=== PATIENT | female | born 1940 | race Caucasian/White ===

== ENCOUNTER 2018-04-16 09:00 | Emergency (ER) | payer OTHER, BC ==
--- NOTE | 2018-04-16 10:48 | EDPHY ---
HPI/HX/ROS/PE/MDM Narrative: CHIEF COMPLAINT: Neck pain HISTORY OF PRESENT ILLNESS: The patient is a 78 y/o female complaining of neck pain worsening over the last 24 hours. She noticed mild soreness along the right lateral and posterior side of her neck yesterday. Shortly after falling asleep she woke up after midnight with significantly worse right neck pain. Sitting up helped and she propped up some pillows around her right arm and back to help her briefly get back to sleep. Lifting her right arm aggravates her pain as dose turning her head laterally. Sometimes the neck pain radiates into her right upper arm. She hasn't taken anything for pain yet. She denies weakness or paresthesias. She also mentions intermittent thyroid soreness followed by her doctor and she currently does have some mild right anterior soreness over her thyroid. She otherwise denies prior history of neck issues or pain. No recent trauma. She went to her doctor's office this morning and was referred to the ED. No fever, chills, chest pain, shortness of breath, palpitations, vomiting, diarrhea, urinary complaints, headache, lightheadedness. REVIEW OF SYSTEMS: Aside from elements discussed in the HPI, a comprehensive 10-point review of systems was reviewed and is negative. PAST MEDICAL HISTORY: Tubal ligation, thyroid issue, tonsillectomy, endometriosis Prior medical records reviewed including ED visit 09/11/13 for abdominal pain. SOCIAL HISTORY: Lives in [place]. . Retired. PCP: Dr. Durbin. VITAL SIGNS: Reviewed by me GENERAL: Well-developed, well-nourished, sitting upright. Holding her neck quite still. Unable to turn her head to the right side secondary to pain. HEENT: Atraumatic. Eyes: No icterus, no injection. Mouth: moist mucous membranes. No erythema or lesions. Neck: No midline tenderness to palpation. Spasm and tenderness along the right paraspinous muscles. LUNGS: Clear to auscultation bilaterally, no wheezes, rhonchi or rales. CARDIAC: Regular rate and rhythm, no rubs, murmurs or gallops. ABDOMEN: Soft, nontender, nondistended, bowel sounds normal. BACK: No cervical tenderness in the midline. No thoracic tenderness. No lumbar tenderness. Spasm is palpable in the right cervical paraspinous muscles. EXTREMITIES: No trauma. No edema. Range of motion is normal throughout. NEURO: Alert and oriented, grossly nonfocal. Normal or manager strength bilaterally. Normal sensation in the upper extremities. SKIN: Warm and dry, no rash. PSYCHIATRIC: Normal mentation, no agitation. Portions of this note were transcribed by a vice president medical affairs. I personally performed a history, physical exam, medical decision making, and confirmed accuracy of information the transcribed note. ED Course: This is a 78 y/o female who presents with right-sided neck pain with occasional radiation into her right upper arm worsening over the last 24 hours. She has right paraspinous and trapezius tenderness on exam. Nonfocal neuro exam. Plan for IV, labs including TSH, symptom management, and cervical spine CT as well as neck CT with IV contrast. 10mg PO Flexeril, 600mg PO ibuprofen ordered. Advised by Radiology that a soft tissue neck with IV contrast will be able to evaluate the cervical spine and a single order was all that was needed. 1324: Reassessed patient. She is feeling slightly better. CT results pending. 50mg PO Tramadol ordered. Cervical spine CT demonstrates significant amount of degenerative joint disease , no fractures. Patient does have evidence of a multi nodular thyroid and may benefit from a fine-needle aspiration. Of laboratory evaluation is normal. She has no signs or symptoms which are concerning for a stroke. No headache. Plan was to discharge the patient home with treatment for cervical neck pain of musculoskeletal etiology and follow up with her primary care physician concerning her thyroid. MDM: Differential diagnoses for the patient's symptom complex was considered including but not limited to cervical strain, occult fracture, cervical radicular symptoms, muscle spasm, anterior neck mass. - Data Points Imaging Results: CT Neck Impression: 1. Dominant heterogeneous enhancing nodule right lobe of the thyroid. Sono- guided fine-needle aspiration can be performed at some point as clinically directed. 2. Additional benign-appearing nodules associated with the left lobe of the thyroid. Consider multinodular goiter. 3. Degenerative disk disease mid cervical spine with facet hypertrophy mid to lower cervical and upper thoracic spine as detailed above. Findings discussed with Kavita Sales MD at 14:00 hour, 04/16/2018. Imaging: Discussed imaging studies w/ orthopedically impaired teacher Radiologist, I viewed and interpreted images myself Laboratory Results: Laboratory Results 04/16/18 11:20 04/16/18 11:20 Medications Given: Discontinued Medications Cyclobenzaprine HCl (Flexeril) 10 mg PO EDNOW ONE Stop: 04/16/18 11:08 Last Admin: 04/16/18 11:19 Dose: 10 mg Ibuprofen (Motrin) 600 mg PO EDNOW ONE Stop: 04/16/18 11:08 Last Admin: 04/16/18 11:23 Dose: Not Given Tramadol HCl (Ultram) 50 mg PO EDNOW ONE Stop: 04/16/18 13:37 Last Admin: 04/16/18 13:59 Dose: 50 mg General Time Seen by Provider: 04/16/18 10:35 Initial Vital Signs: Initial Vital Signs Temperature (C) 36.9 C 04/16/18 09:03 Heart Rate 93 04/16/18 09:03 Respiratory Rate 18 04/16/18 09:03 Blood Pressure 137/79 H 04/16/18 09:03 O2 Sat (%) 92 04/16/18 09:03 O2 Delivery Mode Room Air Allergies/Adverse Reactions: propoxyphene HCl [From Darvon] Allergy (Verified 04/16/18 09:07) SNYCOPE Home Medications: Medication Instructions Recorded Cyclobenzaprine [Flexeril 10 MG 10 mg PO TID PRN #15 tab 04/16/18 (*)] traMADol [Ultram 50 mg (*)] 25 - 50 mg PO Q4 PRN #15 tab 04/16/18 Departure - Departure Disposition: Home, Routine, Self-Care Clinical Impression: Multinodular goiter Degenerative joint disease of cervical spine Qualifiers: Spinal osteoarthritis complication: unspecified spinal osteoarthritis Qualified Code(s): M47.812 - Spondylosis without myelopathy or radiculopathy, cervical region Acute cervical sprain Qualifiers: Encounter type: initial encounter Qualified Code(s): S13.9XXA - Sprain of joints and ligaments of unspecified parts of neck, initial encounter Condition: Good Instructions: Cervical Strain (ED), Thyroid Nodules (ED), Acute Neck Pain (ED) Additional Instructions: Please follow up with your primary care physician if you're not improving as expected in the next 3-4 days. Main therapy will be to ice the neck, take ibuprofen for pain and anti inflammation, take Tylenol for additional pain relief, and use Flexeril if needed for muscle spasm. Apply ice for 20-30 minutes every 2-3 hours for the next 48 hours. I recommend Ibuprofen (Motrin, Advil) for pain and anti-inflammatory effects. Your dose is: Ibuprofen 400 mg every 6-8 hours with food. You may take high-dose Tylenol, 1 g, in addition if you are having mild to moderate neck pain. You been given a prescription for tramadol. You may use this as needed for more severe neck pain and inability to move the neck. You may use flexeril if needed for muscle spasm Followup with your primary care physician early next week. You have also been given referral to a neurosurgeon. Follow up with them if you continue to have significant neck discomfort. Return to the emergency department or seek care urgently if you develop severe neck pain, numbness or tingling radiating into her arms or legs, weakness, difficulty with speech, severe headache, or other concerns. Referrals: Danielle Durbin DO [Primary Care Provider] - As per Instructions Juaquin Morton MD [Medical Doctor] - As per Instructions Prescriptions: Cyclobenzaprine [Flexeril 10 MG (*)] 10 mg PO TID PRN #15 tab PRN Reason: Spasms traMADol [Ultram 50 mg (*)] 25 - 50 mg PO Q4 PRN #15 tab PRN Reason: Pain, Breakthrough Report Scribed for: Kavita Sales Report Scribed by: Kiah Cabrera Date of Report: 04/16/18 Time of Report: 10:57
[2018-04-16] MEDS ORDERED: CYCLOBENZAPRINE 10 MG TAB PO ONE (11:07)
[2018-04-16] MEDS: IBUPROFEN 600 MG TAB PO ONE ×2 (11:19→11:23)
[2018-04-16 11:44] LABS: PLATELET COUNT 204 10^3/uL (150-400)
[2018-04-16] MEDS ORDERED: IOHEXOL 300 mgI/ML (OMNIPAQUE) 150 ML BTL IV ONE (11:44)
[2018-04-16] MEDS ORDERED: traMADol 50 MG TAB PO ONE (13:36)
[2018-04-16 14:01] VITALS: BP 120/84
== END 2018-04-16 14:35 | disposition home or self-care (01) ==
LOC: SUPCPDRO 09:00
DX: S13.9XXA Sprain of joints and ligaments of unspecified parts of neck, initial encounter (principal); M47.812 Spondylosis without myelopathy or radiculopathy, cervical region; E04.2 Nontoxic multinodular goiter
CPT/HCPCS: 70491; 99285; Q9967